=== PATIENT | male | born 2000 | race Caucasian/White ===

== ENCOUNTER 2020-09-30 21:40 | Emergency (ER) | payer OTHER ==
[~2020-09-30] VITALS: Ht 177.8 cm; Wt 72.6 kg
[~2020-09-30 21:40] MED LIST: KEFLEX500 M1 PO; NOHOMEMEDICATIONS
[2020-09-30 23:01] LABS: URINE BILIRUBIN NEGATIVE (Negative); URINE BLOOD NEGATIVE (Negative); URINE CLARITY CLEAR; URINE COLOR YELLOW; URINE GLUCOSE-RANDOM NEGATIVE (Negative); URINE KETONES 1+ (Negative); URINE LEUKOCYTES NEGATIVE (Negative); URINE NITRITE NEGATIVE (Negative); URINE PROTEIN TRACE (Negative); URINE SPECIFIC GRAVITY >= 1.030 (1.005-1.030); URINE UROBILINOGEN 0.2 E.U./dl (0.2-1.0)
[2020-09-30 23:02] LABS: HEMATOCRIT 42.6 % (42.0-52.0); HEMOGLOBIN 14.5 gm/dL (14.0-18.0); MCH 30.9 pg (26.0-34.0); MCHC 34.1 g/dL (28.0-37.0); MCV 90.7 fL (80.0-100.0); MPV 8.9 fl. (7.2-11.1); RBC 4.69 mil/uL (4.50-6.00); RDW-CV 12.7 % (10.5-14.5); WBC 8.7 thou/uL (4.0-11.0)
[2020-09-30 23:07] LABS: CALCIUM 8.3 mg/dL (8.5-10.1); CREATININE 1.1 mg/dL (0.6-1.3); POTASSIUM 3.9 mmol/L (3.5-5.1)
[2020-09-30 23:12] LABS: ALBUMIN 4.2 g/dL (3.4-5.0); ALCOHOL < 10 mg/dL (<10); SALICYLATE < 2.8 mg/dL (2.8-20.0); TOTAL BILIRUBIN 0.7 mg/dL (<0.1-1.0); TOTAL PROTEIN 7.3 g/dL (6.4-8.2)
[2020-09-30 23:12] LABS: AMP/METHAMP Negative (Negative); BARBITURATES Negative (Negative); BENZODIAZEPINES Negative (Negative); COCAINE Negative (Negative); METHADONE Negative (Negative); OPIATES Negative (Negative); PCP Negative (Negative); THC POSITIVE (Negative)
[2020-09-30 23:14] LABS: ACETAMINOPHEN < 2 ug/mL (10-30)
[2020-10-02 18:00] VITALS: BP 120/81
== END 2020-10-02 18:00 ==
LOC: M.ERS 21:40
PROVIDERS: Personal Emergency Response Attendant
DX: F22 Delusional disorders (principal); Z20.822 Contact with and (suspected) exposure to COVID-19; R45.851 Suicidal ideations; R45.850 Homicidal ideations; F12.90 Cannabis use, unspecified, uncomplicated

== ENCOUNTER 2020-12-12 15:53 | Emergency (ER) | payer OTHER ==
[~2020-12-12] VITALS: Ht 177.8 cm; Wt 86.2 kg
[2020-12-12] MEDS ORDERED: HYDROXYZINE HCL50 MG PO (16:02)
[2020-12-12] MEDS ORDERED: LEXAPRO 10 MG T10 M1 PO ×2 (16:03→16:06)
[2020-12-12] MEDS ORDERED: ABILIFY10 MG PO ×2 (16:03→16:06)
[2020-12-12] MEDS ORDERED: VISTARIL50 MG PO (16:06)
[2020-12-12 16:11] VITALS: BP 124/54
== END 2020-12-12 16:12 | disposition home or self-care (01) ==
LOC: M.ERS 15:53
DX: F41.9 Anxiety disorder, unspecified (principal); Z76.0 Encounter for issue of repeat prescription; F32.9 Major depressive disorder, single episode, unspecified; Z79.899 Other long term (current) drug therapy